=== PATIENT | female | born 1990 | race African-American/Black ===

== ENCOUNTER 2017-06-08 08:23 | Day surgery (SDC) | payer BC, MEDICAID ==
[2017-06-08] MEDS ORDERED: MIDAZOLAM 2 MG/2 ML INJ ONE (08:39)
[2017-06-08] MEDS ORDERED: ONDANSETRON HCL INJ/PF 4 MG/2 ML SDV ONE (08:40)
[2017-06-08] MEDS ORDERED: PROPOFOL INJ 200 MG/20 ML VIAL IV ONE ×2 (08:40→14:39)
[2017-06-08] MEDS ORDERED: DIPHENHYDRAMINE HCL 50 MG/ML VIAL IV PRN (10:03)
[2017-06-08] MEDS ORDERED: PROMETHAZINE HCL INJ 25 MG/1 ML VIAL IV PRN (10:03)
[2017-06-08] MEDS ORDERED: FENTANYL CITRATE INJ/PF 100 MCG/2 ML AMPUL IV PRN ×3 (10:03)
--- NOTE | 2017-06-08 11:44 | Operative Report ---
Operative Report DATE OF SURGERY: 06/08/17 Operative Report: The risks, benefits and alternatives of the procedure including risks of bleeding, perforation requiring surgery are explained to the patient in detail and informed consent is obtained. Patient is taken back to the operating room and placed in the left, lateral decubital position. Timeout was called. Propofol medications administered. A rectal examination is done which did not reveal any masses, tears or fissures. An Olympus videoscope was inserted into the patient's rectum. The scope was then carefully advanced all the way to the cecum. The cecum was identified by the usual anatomical landmarks including the ileocecal valve as well as the appendiceal office. Photodocumentation is obtained. The scope was then sequentially pulled back via the various segments of the colon including the ascending colon, hepatic flexure, transverse colon, splenic flexure, descending colon went to the rectosigmoid portions of the colon. Retroflexion maneuver is performed. The risks benefits and alternatives of the procedure explained to the patient in detail and informed consent is obtained.A GIF Olympus video scope was inserted into the patient's mouth and hypopharynx, the esophagus is identified intubated and insufflated ,the scope was then advanced through the esophagus stomach and duodenum, retroflexion maneuver is done, the esophagus stomach and first and second portions of the duodenum examined PREOPERATIVE DIAGNOSIS: Change in bowel habits. Nausea vomiting. Weight loss POSTOPERATIVE DIAGNOSIS: Gastritis status post biopsy rule out Helicobacter pylori. Right side colon Inflammation status post biopsy rule out lymphocytic, microscopic colitis. Internal hemorrhoids OPERATION: Colonoscopy with biopsy. EGD with biopsy SURGEON: ALEJANDRO CARVAJAL ANESTHESIA: LMAC TISSUE REMOVED OR ALTERED: As noted above. COMPLICATIONS: None. ESTIMATED BLOOD LOSS: None. INTRAOPERATIVE FINDINGS: As noted above. PROCEDURE: Patient tolerated procedure well. No immediate postprocedure complications are noted. Patient discharged in good condition. Discharge date 06/08/2017. Discharge diet: Regular. Discharge activity: Regular. 2-3 week follow-up to discuss findings. Patient is instructed to call the office or proceed to the emergency room should there be any further problems or questions. We will wait on pathology.
[2017-06-08 12:43] VITALS: BP 121/77
== END 2017-06-08 12:30 | disposition home or self-care (01) ==
LOC: OROUT 08:23
PROVIDERS: ATTEND Internal Medicine Gastroenterology
PROC: 0DB68ZX Excision of Stomach, Via Natural or Artificial Opening Endoscopic, Diagnostic (ICD-10-PCS; principal; 2017-06-08 09:30)
PROC: 0DBF8ZX Excision of Right Large Intestine, Via Natural or Artificial Opening Endoscopic, Diagnostic (ICD-10-PCS; 2017-06-08 09:30)
DX: K52.9 Noninfective gastroenteritis and colitis, unspecified (principal); K29.50 Unspecified chronic gastritis without bleeding; K64.8 Other hemorrhoids; K21.9 Gastro-esophageal reflux disease without esophagitis; R63.4 Abnormal weight loss; Z87.891 Personal history of nicotine dependence; Z79.899 Other long term (current) drug therapy; Z88.2 Allergy status to sulfonamides; Z68.20 Body mass index [BMI] 20.0-20.9, adult
CPT/HCPCS: 43239; 45380; 81025; 88342 ×2; 88305 ×2; J2250; J2405; J2704; 813

== ENCOUNTER 2018-09-21 17:21 | Emergency (ER) | payer BC ==
[2018-09-21] MEDS ORDERED: ONDANSETRON 4 MG TAB.RAPDIS PO ONE (17:43)
[2018-09-21] MEDS ORDERED: IBUPROFEN 600 MG TABLET PO ONE (17:43)
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
--- NOTE | 2018-09-21 18:13 | RADIOLOGY REPORT (SQ) ---
EXAM DESCRIPTION: HAND RIGHT 3 VIEWS COMPLETED DATE/TIME: 09/21/2018 5:58 pm REASON FOR STUDY: punched a wall pain swelling COMPARISON: None. EXAM PARAMETERS: NUMBER OF VIEWS: Three views. TECHNIQUE: AP, lateral and oblique radiographic images acquired of the right hand. LIMITATIONS: None. FINDINGS: MINERALIZATION: Normal. BONES: No acute fracture or dislocation. No worrisome bone lesions. JOINTS: No effusions. SOFT TISSUES: No soft tissue swelling. No foreign body. OTHER: No other significant finding. IMPRESSION: NEGATIVE STUDY OF THE RIGHT HAND. NO RADIOGRAPHIC EVIDENCE OF ACUTE INJURY. TECHNICAL DOCUMENTATION: JOB ID: [id number] [employer]- All Rights Reserved Reading location - IP/workstation name: [email or web address]
[2018-09-21 19:24] VITALS: BP 105/66
== END 2018-09-21 19:21 | disposition home or self-care (01) ==
LOC: ER 17:21
DX: S60.221A Contusion of right hand, initial encounter (principal); S60.00XA Contusion of unspecified finger without damage to nail, initial encounter; M79.641 Pain in right hand; W22.01XA Walked into wall, initial encounter; Y93.89 Activity, other specified; Y92.009 Unspecified place in unspecified non-institutional (private) residence as the place of occurrence of the external cause; M79.89 Other specified soft tissue disorders; Z88.1 Allergy status to other antibiotic agents
CPT/HCPCS: 99283; 73130; S0119